=== PATIENT | female | born 1935 | race Two or more races ===

== ENCOUNTER 2016-08-06 06:24 | Day surgery (SDC) | payer OTHER ==
[~2016-08-06] VITALS: Ht 147.3 cm; Wt 65.5 kg
[2016-08-06 08:06] VITALS: Ht 147.3 cm; Wt 65.5 kg
[2016-08-06] MEDS ORDERED: METFORMIN (08:14)
[2016-08-06] MEDS ORDERED: BP MEDS (08:14)
[2016-08-06] MEDS ORDERED: PROPOFOL 20 ML ONE (08:32)
[2016-08-06 08:45] VITALS: BP 161/74; PULSE 62; RESP 19
[2016-08-06 09:54] VITALS: BP 136/62; RESP 20
--- NOTE | 2016-08-06 11:35 | GILP ---
DATE OF PROCEDURE: 08/06/2016 NAME OF PROCEDURE: Colonoscopy up to cecum. PREOPERATIVE DIAGNOSIS: Screening colonoscopy to rule out colon polyps. POSTOPERATIVE DIAGNOSES: 1. Moderate degree of internal hemorrhoids. 2. Moderate degree of external hemorrhoids. 3. Moderate degree of diverticulosis with no bleeding. No polyps, no cancer. DESCRIPTION OF PROCEDURE: After the informed written consent was obtained, the patient was asked to lie on the left lateral side. Intravenous anesthesia was given by anesthesiologist, Dr. Porras. When the patient became somnolent, the Olympus video colonoscope was introduced into the rectum and scop e was advanced all the way to the cecum. Entire colon was examined. Moderate degree of diverticulo sis was noted. They are small in size, is not severe degree of diverticulosis, no inflammation, no polyps noted. Scope was withdrawn from the cecum after identifying the appendiceal opening and ileo cecal valve. Moderate degree of internal hemorrhoids, moderate degree of external hemorrhoids were noted and the procedure was terminated. PLAN: Recommend repeat colonoscopy in 10 years. Dictated By: CARL BECKER/KHUSHBU Conf#: [id number] DID#: [id number] CC: MARIO ; CARL SHERIDAN MD;*[facility]*
--- NOTE | 2016-08-07 05:12 | GILP ---
DATE OF PROCEDURE: 08/06/2016 PROCEDURE: Esophagogastroduodenoscopy. PREOPERATIVE DIAGNOSES: Patient presenting with history of chronic heartburn, unresponsive to routi ne therapy, rule out peptic ulcer disease. She also uses Diclofenac sodium ointment on the skin twi ce a day, rule out NSAID induced ulcer disease, GERD, Ramirez's esophagus, etc. POSTOPERATIVE DIAGNOSES 1. Mild gastroesophageal reflux disease, [place] classification A with superficial ulcer noted in the gastroesophageal junction. 2. A 5 mm irregular ulcer noted at the pyloric ring. Biopsies were done. 3. Diffuse patchy gastritis. DESCRIPTION OF PROCEDURE: After the informed written consent was obtained, the patient was asked to lie on the left lateral side. Intravenous anesthesia was given by anesthesiologist, Dr. Porras. When the patient became somnolent, the Olympus video upper endoscope was introduced into the oropharynx and then into the esophagus. Esophagus showed evidence of a [place] classification A reflux eso phagitis with a small ulcer at the GE junction. Biopsies were obtained to rule out opportunistic in fections, rule out malignancy. Scope at this time was advanced into the stomach. A 5 mm irregular ulcer noted at the pyloric ring. Multiple biopsies were obtained. Diffuse patchy gastritis was not ed. Biopsy was done from the antrum, the lesser curvature and the fundus to rule out H. pylori infe ction. The mucosa of the duodenum was examined from the bulb up to the end of the second portion. In fact, up to the end of the third portion. Mucosa appeared normal with no duodenitis. No ulcer d isease noted. Scope at this time was withdrawn and the procedure was terminated. PLAN: Recommend to wait for the pathology report. Recommend stop NSAID and also recommend Dexilant 60 mg a day for 2 months and then repeat the endoscopy. Dictated By: CARL BECKER/NTS Conf#: [id number] DID#: [id number] CC: DR. MARIO MENJIVAR;*[facility]*
== END 2016-08-06 13:30 | disposition home or self-care (01) ==
LOC: GIL 06:24
PROVIDERS: ATTEND Internal Medicine Gastroenterology
DX: Z12.11 Encounter for screening for malignant neoplasm of colon (principal); K29.50 Unspecified chronic gastritis without bleeding; K21.0 Gastro-esophageal reflux disease with esophagitis; K64.4 Residual hemorrhoidal skin tags; K64.8 Other hemorrhoids; K57.90 Diverticulosis of intestine, part unspecified, without perforation or abscess without bleeding; I10 Essential (primary) hypertension; E11.9 Type 2 diabetes mellitus without complications
CPT/HCPCS: 43239; 45378; 82962; 88305; 88312; 88313; Z7610